=== PATIENT | male | born 1995 | race Caucasian/White ===

== ENCOUNTER 2017-06-03 01:11 | Emergency (ER) | payer MEDICAID ==
[2017-06-03 01:16] VITALS: BP 144/58
--- NOTE | 2017-06-03 03:07 | ED ---
Sharath Sahu Rebecca, scribed for Isra Espino MD on 06/03/17 at 0151 . Upper Extremity Pain - HPI Summary HPI Summary: Corie costa 21 y/o M who presents to ED c/o L wrist pain. Yesterday at approximately midnight he fell while riding his skateboard after which he noticed slight pain. He applied a splint and proceeded to fall again today. After removing the splint today, he noticed significantly more pain and decreased ROM. Pain is currently moderate, ranked 7/10 and has been constant and worsening since onset. Sx aggravated by movement, alleviated by nothing. - History of Current Complaint Chief Complaint: EDExtremityUpper Stated Complaint: POSS LEFT BROKEN WRIST Time Seen by Provider: 06/03/17 01:44 Hx Obtained From: Patient Mechanism Of Injury: Fall From A Standing Position Onset/Duration: Started Days Ago - Yesterday, Still Present Timing: Constant Severity Initially: Mild Severity Currently: Moderate - 7/10 Pain Location: Wrist - L wrist Aggravating Factor(s): Movement Alleviating Factor(s): Nothing - Allergies/Home Medications Allergies/Adverse Reactions: Allergies Allergy/AdvReac Type Severity Reaction Status Date / Time No Known Allergies Allergy Verified 06/03/17 01:14 PMH/Surg Hx/FS Hx/Imm Hx Cardiovascular History: Denies: Other Cardiovascular Problems/Disorders Respiratory History: Reports: Hx Asthma - WITH RESP VIRUS Denies: Other Respiratory Problems/Disorders GI History: Denies: Other GI Disorders Musculoskeletal History: Reports: Hx Tendonitis - achillies tendon repair, Other Musculoskeletal History - achillies tendon repair Sensory History: Denies: Hx Contacts or Glasses, Hx Hearing Aid Opthamlomology History: Denies: Hx Contacts or Glasses Neurological History: Denies: Other Neuro Impairments/Disorders Psychiatric History: Reports: Hx Anxiety - NO MEDS NOW, Hx Depression - NO MEDS NOW Denies: Hx of Violent Episodes Against Others - Surgical History Surgery Procedure, Year, and Place: 1996, SHERYL EAR TUBES, [facility] [place]. LACERATION RIGHT LEG/ ACHILLES, [facility] [place], 2006. 2005, CIRCUMCISION, [facility] [place]. endoscopy 01/11/2014 Hx Anesthesia Reactions: No Infectious Disease History: No Infectious Disease History: Denies: Traveled Outside the [place] in Last 30 Days - Family History Known Family History: Negative: Cardiac Disease, Hypertension, Diabetes - Social History Alcohol Use: None Substance Use Type: Reports: Marijuana Substance Use Comment - Amount & Last Used: 2 days prior to admission Smoking Status (MU): Unknown if Ever Smoked Type: Cigarettes Amount Used/How Often: 2 days ago Length of Time of Smoking/Using Tobacco: of umesh Have You Smoked in the Last Year: Yes Review of Systems Negative: Fever Positive: Arthralgia - L wrist pain with decreased ROM All Other Systems Reviewed And Are Negative: Yes Physical Exam - Summary Physical Exam Summary: General: well-appearing, no pain distress Skin: warm, color reflects adequate perfusion, dry Head: normal Eyes: EOMI, ALEXIS ENT: normal Neck: supple, nontender Respiratory: CTA, breath sounds present Cardiovascular: RRR Musculoskeletal: tender over the distal ulna, not tender in the snuff box, can move all fingers and move his L wrist but with pain, good capillary refill Neurological: normal, sensory/motor intact, A&O x3 Psychological: affect/mood appropriate Triage Information Reviewed: Yes Vital Signs On Initial Exam: Initial Vitals Temp Pulse Resp BP Pulse Ox 97.6 F 85 16 144/58 100 06/03/17 01:15 06/03/17 01:15 06/03/17 01:15 06/03/17 01:15 06/03/17 01:15 Vital Signs Reviewed: Yes Procedures - Splinting Location: L thumb Hand-Made Type: orthoglass Splint: thumb spica Pre-Proc Neuro Vasc Exam: normal Post-Proc Neuro Vasc Exam: normal Diagnostics - Vital Signs Vital Signs Temp Pulse Resp BP Pulse Ox 06/03/17 01:15 97.6 F 85 16 144/58 100 - Laboratory Lab Statement: Any lab studies that have been ordered have been reviewed, and results considered in the medical decision making process. - Radiology Wrist XR Xray Interpretation: Positive (See Comments) - Scaphoid fracture Radiology Interpretation Completed By: ED Physician Re-Evaluation - Re-Evaluation First Eval Re-Evaluation Time: 02:37 Comment: Discussed XR results and splinted the L thumb. Course/Dx - Course Course Of Treatment: NO CRITICAL CARE TIME. LEFT THUMB SPICA SPLINT PLACED. PATIENT WAS UNSURE TO WHICH ORTHOPIC GROUP HE WILL GO TO THEREFORE, BOTH GROUP ORTHOPEDISTS [employer] WERE GIVEN AT DISCHARGE. I STRONGLY STRESSED THE NEED FOR CLOSE FOLLOW UP TO AVOID LOSS OF FUNCTION OF THE WRIST. - Diagnoses Provider Diagnoses: Fracture of scaphoid of left wrist Discharge - Discharge Plan Condition: Stable Disposition: HOME Patient Education Materials: Scaphoid Fracture (ED) Referrals: Jim Boles MD [Primary Care Provider] - Toi Salgado MD [Medical Doctor] - Lorena Hernandez MD [Medical Doctor] - Additional Instructions: FOLLOW UP WITH YOUR DOCTOR AND ORTHOPEDICS. THE SCAPHOID BONE, WHEN BROKEN, MAY REQUIRE SURGERY TO ENSURE PROPER HEALING. IF THE BONE DOES NOT HEAL CORRECTLY, YOU MAY LOOSE FULL FUNCTION OF YOUR WRIST. CALL ORTHOPEDICS TODAY FOR FOLLOW UP. RETURN TO THE EMERGENCY DEPARTMENT FOR ANY WORSENING OF YOUR CONDITION OR QUESTIONS OR CONCERNS. The documentation as recorded by the Sharath clemons Rebecca accurately reflects the service I personally performed and the decisions made by me, Isra Espino MD.
--- NOTE | 2017-06-03 07:51 | RAD ---
INDICATION: Left wrist injury. TECHNIQUE: 3 views of the left wrist were obtained. FINDINGS: The bones are in normal alignment. There is soft tissue swelling present along the dorsal aspect of the carpal bones. There is a transverse nondisplaced fracture through the midportion of the scaphoid bone. No other fractures are seen. Joint spaces appear maintained. The results of this examination were discussed with the emergency department charge nurse Henry. IMPRESSION: TRANSVERSE NONDISPLACED FRACTURE OF THE SCAPHOID BONE.
== END 2017-06-03 03:22 | disposition home or self-care (01) ==
LOC: ED 01:11
DX: S62.002A Unspecified fracture of navicular [scaphoid] bone of left wrist, initial encounter for closed fracture (principal); W19.XXXA Unspecified fall, initial encounter; Y93.51 Activity, roller skating (inline) and skateboarding; Y92.9 Unspecified place or not applicable; Y99.9 Unspecified external cause status
CPT/HCPCS: 99282

== ENCOUNTER 2017-06-07 01:55 | Emergency (ER) | payer MEDICAID ==
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
[2017-06-07 03:47] VITALS: BP 131/65
--- NOTE | 2017-06-07 07:55 | RAD ---
INDICATION: Left wrist injury. COMPARISON: Comparison is made with a prior x-ray study of the left wrist from June 03, 2017. TECHNIQUE: 3 views of the left wrist were obtained. FINDINGS: The wrist is in a fiberglass splint. Again note is made of a transverse minimally displaced fracture through the midportion of the scaphoid bone. There appears to be no significant change from the prior study. IMPRESSION: TRANSVERSE MINIMALLY DISPLACED FRACTURE THROUGH THE MIDPORTION OF THE SCAPHOID BONE, UNCHANGED.
== END 2017-06-07 04:04 | disposition home or self-care (01) ==
LOC: ED 01:55
DX: S62.002A Unspecified fracture of navicular [scaphoid] bone of left wrist, initial encounter for closed fracture (principal); Y35.811A Legal intervention involving manhandling, law enforcement official injured, initial encounter; Y93.9 Activity, unspecified; Y92.89 Other specified places as the place of occurrence of the external cause; F17.210 Nicotine dependence, cigarettes, uncomplicated
CPT/HCPCS: 29125; 99282

== ENCOUNTER → 2017-07-24 21:08 | Emergency (ER) | payer MEDICAID | END | disposition left against medical advice (07) | LOC: ED 21:08 | DX: R51 Headache (principal); Z53.21 Procedure and treatment not carried out due to patient leaving prior to being seen by health care provider ==

== ENCOUNTER 2018-01-20 08:00 | Emergency (ER) | payer SELFPAY ==
[2018-01-20] MEDS ORDERED: NS 0.9% 1000 ML* 1,000 ML IV ONE ×2 (08:28→10:46)
[2018-01-20] MEDS ORDERED: Ondansetron INJ* 2 MG/ML VIAL IV ONE ×2 (08:30→10:46)
[2018-01-20 09:03] LABS: ABS Basophils 0.1 10^3/ul (0-0.2); ABS Eosinophils 0.1 10^3/ul (0-0.6); ABS Lymphocytes 1.2 10^3/ul (1.0-4.8); ABS Monocytes 0.3 10^3/ul (0-0.8); ABS Neutrophils 12.1 10^3/ul (1.5-7.7); ABS Nucleated RBC 0 10^3/ul; Eosinophil % 0.4 % (0-6); Hematocrit 45 % (42-52); Hemoglobin 14.7 g/dl (14.0-18.0); Lymphocyte % 8.8 % (25-47); Mean Corpuscular HGB Conc 33 g/dl (31-36); Mean Corpuscular Hemoglobin 25 pg (27-31); Mean Corpuscular Volume 76 fL (80-94); Mean Platelet Volume 8 um3 (7.4-10.4); Nucleated Red Blood Cells % 0.1; Platelet Count 277 10^3/ul (150-450); Red Blood Count 5.82 10^6/ul (4.0-5.4); Red Cell Distribution Width 14 % (10.5-15); White Blood Count 13.8 10^3/ul (3.5-10.8)
[2018-01-20 09:46] LABS: Urine Appearance Clear; Urine Blood Negative (Negative); Urine Color Yellow; Urine Ketones Negative (Negative); Urine Protein 2+(100 mg/dL) (Negative); Urine Specific Gravity 1.017 (1.010-1.030); Urine Urobilinogen Negative (Negative)
[2018-01-20 10:07] LABS: EGFR Non-African American 98.7 (>60)
[2018-01-20 11:11] VITALS: BP 143/70
--- NOTE | 2018-01-21 08:16 | ED ---
Camilo Sahu Angela, scribed for Juan Jose Malik MD on 01/20/18 at 0835 . GI/ HPI - HPI Summary HPI Summary: This pt is a 22 y/o male presenting to [facility] c/o nausea and vomiting since 02: 00. Pt reports he is unable to keep any food or drink down. He additionally states he has some abdominal pain, described as tightness. He notes he drank alcohol last night but does not know the amount that he ingested. Denies any PMHx. - History of Current Complaint Chief Complaint: EDNauseaVomitDiarrh Time Seen by Provider: 01/20/18 08:16 Stated Complaint: VOMITING Hx Obtained From: Patient Onset/Duration: Started Hours Ago, Still Present Timing: Constant, Lasting Hours Current Severity: Moderate Pain Intensity: 8 Location of Pain: Diffuse Associated Signs and Symptoms: Positive: Nausea, Vomiting Aggravating Factor(s): Nothing Alleviating Factor(s): Nothing - Allergy/Home Medications Allergies/Adverse Reactions: Allergies Allergy/AdvReac Type Severity Reaction Status Date / Time No Known Allergies Allergy Verified 01/20/18 08:09 PMH/Surg Hx/FS Hx/Imm Hx Endocrine/Hematology History: Denies: Hx Diabetes Cardiovascular History: Denies: Hx Hypertension, Other Cardiovascular Problems/Disorders Respiratory History: Reports: Hx Asthma - WITH RESP VIRUS Denies: Other Respiratory Problems/Disorders GI History: Denies: Other GI Disorders Musculoskeletal History: Reports: Hx Tendonitis - achillies tendon repair, Other Musculoskeletal History - achillies tendon repair Sensory History: Denies: Hx Contacts or Glasses, Hx Hearing Aid Opthamlomology History: Denies: Hx Contacts or Glasses Neurological History: Denies: Other Neuro Impairments/Disorders Psychiatric History: Reports: Hx Anxiety - NO MEDS NOW, Hx Depression - NO MEDS NOW Denies: Hx of Violent Episodes Against Others - Surgical History Surgery Procedure, Year, and Place: 1996, SHERYL EAR TUBES, [facility] [place] LACERATION RIGHT LEG/ [place]ES, [facility] [place], 2006. 2005, CIRCUMCISION, [facility] [place]. endoscopy 01/11/2014 Hx Anesthesia Reactions: No Infectious Disease History: No Infectious Disease History: Denies: Traveled Outside the [place] in Last 30 Days - Family History Known Family History: Negative: Cardiac Disease, Hypertension, Diabetes - Social History Alcohol Use: Occasionally Substance Use Type: Reports: Marijuana Smoking Status (MU): Light Every Day Tobacco Smoker Type: Cigarettes Amount Used/How Often: 2 days ago Length of Time of Smoking/Using Tobacco: of marajuanna Have You Smoked in the Last Year: Yes Review of Systems Negative: Fever, Chills Eyes: Negative ENT: Negative Cardiovascular: Negative Positive: Abdominal Pain, Vomiting, Nausea Skin: Negative Neurological: Negative All Other Systems Reviewed And Are Negative: Yes Physical Exam - Summary Physical Exam Summary: VITAL SIGNS: Reviewed. GENERAL: Patient is a well-developed and nourished male who is lying comfortable in the stretcher. Patient is not in any acute respiratory distress. HEAD AND FACE: No signs of trauma. No ecchymosis, hematomas or skull depressions. No sinus tenderness. EYES: PERRLA, EOMI x 2, No injected conjunctiva, no nystagmus. EARS: Hearing grossly intact. Ear canals and tympanic membranes are within normal limits. MOUTH: Oropharynx within normal limits. NECK: Supple, trachea is midline, no adenopathy, no JVD, no carotid bruit, no c- spine tenderness, neck with full ROM. CHEST: Symmetric, no tenderness at palpation LUNGS: Clear to auscultation bilaterally. No wheezing or crackles. CVS: Regular rate and rhythm, S1 and S2 present, no murmurs or gallops appreciated. ABDOMEN: Soft. Epigastric tenderness. No signs of distention. No rebound no guarding, and no masses palpated. Bowel sounds are normal. EXTREMITIES: FROM in all major joints, no edema, no cyanosis or clubbing. NEURO: Alert and oriented x 3. No acute neurological deficits. Speech is normal and follows commands. SKIN: Dry and warm Triage Information Reviewed: Yes Vital Signs On Initial Exam: Initial Vitals Temp Pulse Resp BP Pulse Ox 97.8 F 71 17 133/65 100 01/20/18 08:05 01/20/18 08:05 01/20/18 08:05 01/20/18 08:05 01/20/18 08:05 Vital Signs Reviewed: Yes Diagnostics - Vital Signs Vital Signs Temp Pulse Resp BP Pulse Ox 01/20/18 08:05 97.8 F 71 17 133/65 100 - Laboratory Result Diagrams: 01/20/18 08:55 01/20/18 08:55 Lab Statement: Any lab studies that have been ordered have been reviewed, and results considered in the medical decision making process. [id number] Course/Dx - Course Assessment/Plan: This pt is a 22 y/o male presenting to [facility] c/o nausea and vomiting since 02:00. Pt reports he is unable to keep any food or drink down. He additionally states he has some abdominal pain, described as tightness. He notes he drank alcohol last night but does not know the amount that he ingested. Denies any PMHx. Test results show WBC of 13.8. Urinalysis is negative for UTI. In the ED course the pt was given IV fluids, Zofran for nausea and vomiting, and his symptoms improved. Pt is able to tolerate PO and has no other complaints. Pt will be discharged to home with follow up from PCP. Pt is hemodynamically stable, alert and oriented x3. - Diagnoses Provider Diagnoses: Nausea and vomiting Discharge - Discharge Plan Condition: Stable Disposition: HOME Patient Education Materials: Acute Nausea and Vomiting (ED) Referrals: [facility] PHYSICIAN REFERRAL [Outside] - 3 Days Additional Instructions: Please follow up with your primary care provider. RETURN TO THE ED FOR ANY WORSENING SYMPTOMS. The documentation as recorded by the Camilo clemons Angela accurately reflects the service I personally performed and the decisions made by , Juan Jose Malik MD.
== END 2018-01-20 11:10 | disposition home or self-care (01) ==
LOC: ED 08:00
DX: R11.2 Nausea with vomiting, unspecified (principal); R10.9 Unspecified abdominal pain; F17.210 Nicotine dependence, cigarettes, uncomplicated
CPT/HCPCS: 36415; 80053; 81003; 81015; 83735; 85025; 86140; 96374; 96375; 99282; J2405

== ENCOUNTER 2018-07-16 09:29 | Emergency (ER) | payer MEDICAID ==
[2018-07-16 09:35] VITALS: BP 145/87
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
--- NOTE | 2018-07-16 10:30 | RAD ---
INDICATION: Right wrist injury. TECHNIQUE: 3 views of the right wrist were obtained. FINDINGS: There is medial soft tissue swelling. The bones are normal alignment. No fracture is seen. IMPRESSION: NO EVIDENCE FOR FRACTURE.
== END 2018-07-16 10:30 | disposition home or self-care (01) ==
LOC: ED 09:29
DX: S60.211A Contusion of right wrist, initial encounter (principal); M25.531 Pain in right wrist; F17.210 Nicotine dependence, cigarettes, uncomplicated; Y09 Assault by unspecified means; Y92.9 Unspecified place or not applicable
CPT/HCPCS: 99282

== ENCOUNTER 2018-10-31 18:35 | Emergency (ER) | payer OTHER ==
[2018-10-31] MEDS ORDERED: NS 0.9% 1000 ML* 2,000 ML IV ONE (19:22)
--- NOTE | 2018-10-31 19:22 | ED ---
Head Injury - HPI Summary HPI Summary: 23 year old M arriving by taxi to [facility] with a chief complaint of throbbing head pain s/p slipping while getting out of the shower and hitting his head on the corner of the shower several hours ago this afternoon. The patient rates the pain 7/10 in severity. Symptoms aggravated by nothing. Symptoms alleviated by nothing. Patient reports loss of consciousness. He woke up on the bathroom floor and was confused. He does not remember why he fell. Patient reports headache, dizziness, nausea, and neck pain immediately after falling. He notes feeling some chest pain and sore throat. Patient denies incontinence, shortness of breath, runny nose, abdominal pain, vomiting. Patient states that he was born in [place] but has previously been living in [place]. He plans to attend [employer] next month. At the moment, patient is staying at the [facility], a hotel in [place]. Patient usually stays with girlfriend but is in hotel tonight to give girlfriend alone time with her family. Pt states the fall and injury with LOC tonight occurred at the hotel, and he took a cab to get to the ED. Pt states he does not want to notify his girlfriend that he is in the ED. Pt states he has no family in the area, that his mother 2 years ago. Patient has hx concussions from falling from skateboarding. 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 Has no Fhx cardiac disease. Patient does not drink or smoke cigarettes. He smokes marijuana, last time being 2 hours ago prior to the syncopal event. Denies fam hx sudden or cardiac hx. Vital signs while in room: HR 79 bpm, BP 134/94 Home Medications Medication Instructions Recorded Confirmed Type NK [No Home Medications Reported] 10/31/18 10/31/18 History - History Of Current Complaint Chief Complaint: EDHeadInjury Stated Complaint: FALL/POSS HEAD INJURY Time Seen by Provider: 10/31/18 19:03 Hx Obtained From: Patient Mechanism Of Injury: Other - slipping while getting out of the shower and hitting his head on the corner of the shower Onset/Duration: Started Days Ago - several hours ago this afternoon, Still Present Onset of Pain: Immediate Severity Currently: Moderate Severity Initially: Moderate Pain Intensity: 7 Pain Scale Used: 0-10 Numeric Location of Head Injury: Occipital Location: Discrete At: - posterior occiput Character: Throbbing Aggravating Factor(s): Other: - Nothing Alleviating Factor(s): Other: - Nothing Associated Signs And Symptoms: Negative - incontinence, shortness of breath, runny nose, abdominal pain, vomiting, LOC Duration Unknown, Confusion, Memory Loss, Neck Pain, Nausea, Headache, Other: - loss of consciousness, confusion, does not remember why he fell; headache, dizziness, nausea, and neck pain; chest pain and sore throat - Allergies/Home Medications Allergies/Adverse Reactions: Allergies Allergy/AdvReac Type Severity Reaction Status Date / Time No Known Allergies Allergy Verified 10/31/18 18:51 Home Medications: Home Medications NK [No Home Medications Reported] 10/31/18 [History Confirmed 10/31/18] PMH/Surg Hx/FS Hx/Imm Hx Previously Healthy: No Endocrine/Hematology History: Denies: Hx Diabetes Cardiovascular History: Denies: Hx Hypertension, Other Cardiovascular Problems/Disorders Respiratory History: Reports: Hx Asthma - WITH RESP VIRUS Denies: Other Respiratory Problems/Disorders GI History: Denies: Other GI Disorders History: Reports: Other Problems/Disorders - circumcision age 10 1/2 due to partial phimosis and recurrent ballanitis,[facility] [place] Musculoskeletal History: Reports: Hx Tendonitis - achillies tendon repair Sensory History: Denies: Hx Contacts or Glasses, Hx Hearing Aid Opthamlomology History: Denies: Hx Contacts or Glasses Neurological History: Reports: Other Neuro Impairments/Disorders - multiple previous concussions Psychiatric History: Reports: Hx Anxiety - NO MEDS NOW, Hx Attention Deficit Hyperactivity Disorder, Hx Depression - NO MEDS NOW, Hx Post Traumatic Stress Disorder, Other Psychiatric Issues/Disorders - OCD - Surgical History Surgery Procedure, Year, and Place: 1996, SHERYL EAR TUBES, [facility] [place]. LACERATION RIGHT LEG/ ACHILLES, [facility] [place], 2006. 2005, CIRCUMCISION, [facility] [place], due to partial phimosis and recurrent ballanitis. endoscopy 01/11/2014. 10/31/18 pt states surgery for his ?pancreas when he was young, pt unsure of details. Hx Anesthesia Reactions: No Infectious Disease History: No Infectious Disease History: Denies: Traveled Outside the [place] in Last 30 Days - Family History Known Family History: Positive: Other - Mother has anxiety and depression; sister has anxiety Negative: Cardiac Disease, Hypertension, Diabetes - Social History Alcohol Use: None Hx Substance Use: Yes Substance Use Type: Reports: Marijuana Substance Use Comment - Amount & Last Used: daily Hx Tobacco Use: No Smoking Status (MU): Never Smoked Tobacco Amount Used/How Often: 2 days ago Length of Time of Smoking/[facility] Have You Smoked in the Last Year: Yes Review of Systems Constitutional: Negative Eyes: Negative ENT: Negative - runny nose Positive: Sore Throat Positive: Chest Pain Negative: Shortness Of Breath Positive: Nausea. Negative: Abdominal Pain, Vomiting Negative: incontinence Positive: Other - throbbing head pain, neck pain Skin: Negative Neurological: Other - loss of conciousness, confusion, does not remember why he fell, dizziness Positive: Headache Psychological: Normal All Other Systems Reviewed And Are Negative: Yes Physical Exam - Summary Physical Exam Summary: Appearance: Well-appearing, moderate pain distress, well-nourished Skin: Patient has multiple tattoos Head: Patient reports pain on occiptal scalp. There is no cephalohematoma Eyes: Conjunctiva clear, PERRL EOMI ENT: Normal inspection Neck: Supple, no nodes, no JVD, no spinal tenderness, but c/o posterior neck pain Respiratory: Lungs clear, normal breath sounds, no respiratory distress Cardio: RRR, No murmur, pulses normal, brisk capillary refill; Ribs nontender Abdomen: Soft, nontender Bowel sounds: Present Musculoskeletal: Strength Intact/ROM intact, no calf tenderness, no edema. Psychological: Normal Neuro: Alert, muscle tone normal, no focal deficit GCS: 15 Triage Information Reviewed: Yes Vital Signs On Initial Exam: Initial Vitals Temp Pulse Resp BP Pulse Ox 97.8 F 77 19 134/94 100 10/31/18 18:48 10/31/18 18:48 10/31/18 18:48 10/31/18 18:48 10/31/18 18:48 Vital Signs Reviewed: Yes - [place] Coma Scale Best Eye Response: 4 - Spontaneous Best Motor Response: 6 - Obeys Commands Best Verbal Response: 5 - Oriented Coma Scale Total: 15 Diagnostics - Vital Signs Vital Signs Temp Pulse Resp BP Pulse Ox 10/31/18 18:48 97.8 F 77 19 134/94 100 - Laboratory Result Diagrams: 10/31/18 19:35 10/31/18 19:35 Lab Statement: Any lab studies that have been ordered have been reviewed, and results considered in the medical decision making process. - Radiology Cervical spine Radiology Interpretation Completed By: Radiologist Summary of Radiographic Findings: No cervical spine traumatic abnormalities. ED physician has reviewed this report. - CT Brain CT Interpretation Completed By: Radiologist Summary of CT Findings: Normal noncontrast head CT. ED physician has reviewed this report. - EKG 1933 Cardiac Rate: NL - 70 BPM EKG Rhythm: Sinus Rhythm ST Segment: Non-Specific Ectopy: None EKG Comparison: Other - No prior to compare Summary of EKG Findings: NSR at 70 BPM. Normal AVIVCT. Normal QTc. Normal axis. No acute changes. Re-Evaluation - Re-Evaluation First Eval Re-Evaluation Time: 20:58 Change: Improved Comment: Patient still has a mild headache so he will be given 650 mg Tylenol. Denies chest pain. Retentive of paula jeferson. He is unable to provide girlfriend' s number because his phone is not charged. Patient is awake and alert. States he will return to the [facility] tonight. Head Injury Course/Dx Course Of Treatment: Pt with episode of syncope and head injury tonight presents with LARIOS, dizziness, nausea, confusion, loss of memory for the event. Awoke on the floor. Had smoked marijuana 2 hrs prior. Patient medications were reviewed. Patient does not have known allergies. Toxicology positive for cannabinoid. Labs unremarkable. CT Brain and CT Cervical spine showed no abnormalities per radiologist. In ED course, patient was declined IV fluids and drank paula jeferson. Patient will be discharged. He was given instructions to follow up with [facility] and to return to ED for new or worsening symptoms. Patient is agreeable to discharge. - Diagnoses Differential Diagnosis/HQI/PQRI: Cerebral Contusion, Cervical Sprain, Concussion With LOC, Intracranial Bleed, Laceration, Skull Fracture Provider Diagnoses: Syncope, Concussion Discharge - Sign-Out/Discharge Documenting (check all that apply): Patient Departure - Discharge - Discharge Plan Condition: Stable Disposition: HOME Patient Education Materials: Syncope (ED), Concussion (ED) Referrals: [facility] [Outside] - 2 Days Additional Instructions: The CTs of your brain and cervical spine were normal. Your EKG and blood work were also within normal limits. You have sustained a concussion again, and you should not resume any physical activity/sports until you are seen by another physician. You need to get established with a primary care provider. You may be seen in the [facility] until you can get established. Return to the ER if you have any new or worsening symptoms. - Billing Disposition and Condition Condition: STABLE Disposition: Home - Attestation Statements Document Initiated by Esdras: Yes Documenting Scribe: Yana Spencer Provider For Whom Esdras is Documenting (Include Credential): Leticia Knapp MD Scribe Attestation: Yana Sahu, scribed for Leticia Knapp MD on 11/01/18 at 0049. Scribe Documentation Reviewed: Yes Provider Attestation: The documentation as recorded by the Yana clemons accurately reflects the service I personally performed and the decisions made by me, Leticia Knapp MD Status of Scribe Document: Viewed
[2018-10-31 19:44] LABS: ABS Basophils 0.1 10^3/ul (0-0.2); ABS Eosinophils 0.3 10^3/ul (0-0.6); ABS Lymphocytes 2.5 10^3/ul (1.0-4.8); ABS Monocytes 0.4 10^3/ul (0-0.8); ABS Neutrophils 4.6 10^3/ul (1.5-7.7); ABS Nucleated RBC 0 10^3/ul; Hematocrit 46 % (42-52); Hemoglobin 15.5 g/dl (14.0-18.0); Lymphocyte % 31.6 %; Mean Corpuscular HGB Conc 34 g/dl (31-36); Mean Corpuscular Hemoglobin 26 pg (27-31); Mean Corpuscular Volume 77 fL (80-94); Mean Platelet Volume 7.7 fL (7.4-10.4); Nucleated Red Blood Cells % 0.1; Platelet Count 222 10^3/ul (150-450); Red Cell Distribution Width 14 % (10.5-15); White Blood Count 7.9 10^3/ul (3.5-10.8)
[2018-10-31 19:48] LABS: INR 1.06 (0.77-1.02)
[2018-10-31 19:59] LABS: EGFR Non-African American 83.6 (>60)
[2018-10-31 20:17] LABS: Urine Appearance Turbid; Urine Blood Negative (Negative); Urine Color Yellow; Urine Ketones Negative (Negative); Urine Protein Negative (Negative); Urine Specific Gravity 1.019 (1.010-1.030); Urine Urobilinogen Negative (Negative)
[2018-10-31] MEDS ORDERED: Acetaminophen TAB* 325 MG PO ONE (21:04)
[2018-10-31] MEDS ORDERED: Acetaminophen TAB* 325 MG ONE (21:05)
[2018-10-31 21:15] VITALS: BP 142/77
== END 2018-10-31 21:15 | disposition home or self-care (01) ==
LOC: ED 18:35
DX: S06.0X9A Concussion with loss of consciousness of unspecified duration, initial encounter (principal); J02.9 Acute pharyngitis, unspecified; R07.9 Chest pain, unspecified; R06.02 Shortness of breath; R11.0 Nausea; R51 Headache; R55 Syncope and collapse; W18.2XXA Fall in (into) shower or empty bathtub, initial encounter; Y92.9 Unspecified place or not applicable
CPT/HCPCS: 36415; 70450; 72125; 80053; 80307; 80320; 81003; 82150; 83605; 83690; 85025; 85610; 93005; 99283; A9270-GY; G0480

== ENCOUNTER 2019-02-28 18:30 | Emergency (ER) | payer BC, MEDICAID ==
[2019-02-28 18:37] VITALS: BP 143/89
== END 2019-02-28 21:36 | disposition left against medical advice (07) ==
LOC: ED 18:30
DX: K08.89 Other specified disorders of teeth and supporting structures (principal); Z53.21 Procedure and treatment not carried out due to patient leaving prior to being seen by health care provider

== ENCOUNTER 2019-03-01 00:55 | Emergency (ER) | payer BC, MEDICAID ==
[2019-03-01 01:04] VITALS: BP 196/99
[2019-03-01] MEDS ORDERED: Penicillin VK TAB* 250 MG PO ONE (01:44)
--- NOTE | 2019-03-01 01:49 | ED ---
Throat Pain/Nasal Congestion - HPI Summary HPI Summary: 23 year male presents with dental fracture for the past week. He states his pain has been increasing. He states has been some drainage. He denies any fevers. No swelling. No sore throat. No nausea and no vomiting. No chest pressures or shortness of breath. He has swelling around his eyes. States that it is sensitive temperature. - History of Current Complaint Chief Complaint: EDDentalPain Time Seen by Provider: 03/01/19 01:44 - Allergies/Home Medications Allergies/Adverse Reactions: Allergies Allergy/AdvReac Type Severity Reaction Status Date / Time No Known Allergies Allergy Verified 10/31/18 18:51 PMH/Surg Hx/FS Hx/Imm Hx Endocrine/Hematology History: Denies: Hx Diabetes Cardiovascular History: Denies: Hx Hypertension, Other Cardiovascular Problems/Disorders Respiratory History: Reports: Hx Asthma - WITH RESP VIRUS Denies: Other Respiratory Problems/Disorders GI History: Denies: Other GI Disorders History: Reports: Other Problems/Disorders - circumcision age 8 1/2 due to partial phimosis and recurrent ballanitis,[facility] [place] Musculoskeletal History: Reports: Hx Tendonitis - achillies tendon repair, Other Musculoskeletal History - achillies tendon repair Sensory History: Denies: Hx Contacts or Glasses, Hx Hearing Aid Opthamlomology History: Denies: Hx Contacts or Glasses Neurological History: Reports: Other Neuro Impairments/Disorders - multiple previous concussions Psychiatric History: Reports: Hx Anxiety - NO MEDS NOW, Hx Attention Deficit Hyperactivity Disorder, Hx Depression - NO MEDS NOW, Hx Post Traumatic Stress Disorder, Other Psychiatric Issues/Disorders - OCD Denies: Hx of Violent Episodes Against Others - Surgical History Surgery Procedure, Year, and Place: 1996, SHERYL EAR TUBES, [facility] [place]. LACERATION RIGHT LEG/ ACHILLES, [facility] [place], 2006. 2005, CIRCUMCISION, [facility] [place], due to partial phimosis and recurrent ballanitis. endoscopy 01/11/2014. 10/31/18 pt states surgery for his ?pancreas when he was young, pt unsure of details. Hx Anesthesia Reactions: No Infectious Disease History: No Infectious Disease History: Denies: Traveled Outside the [place] in Last 30 Days - Family History Known Family History: Positive: Other - Mother has anxiety and depression; sister has anxiety Negative: Cardiac Disease, Hypertension, Diabetes - Social History Alcohol Use: None Hx Substance Use: Yes Substance Use Type: Reports: Marijuana Substance Use Comment - Amount & Last Used: daily Hx Tobacco Use: No Smoking Status (MU): Never Smoked Tobacco Type: Cigarettes Amount Used/How Often: 2 days ago Length of Time of Smoking/Using Tobacco: of [place] Have You Smoked in the Last Year: Yes Review of Systems Negative: Fever Positive: Dental Pain Negative: Chest Pain Negative: Shortness Of Breath All Other Systems Reviewed And Are Negative: Yes Physical Exam Triage Information Reviewed: Yes Vital Signs On Initial Exam: Initial Vitals Temp Pulse Resp BP Pulse Ox 99.2 F 79 20 196/99 100 03/01/19 00:57 03/01/19 00:57 03/01/19 00:57 03/01/19 00:57 03/01/19 00:57 Vital Signs Reviewed: Yes Appearance: Positive: Well-Appearing Skin: Positive: Warm, Dry Head/Face: Positive: Normal Head/Face Inspection Eyes: Positive: Normal, Conjunctiva Clear ENT: Positive: Pharynx normal Dental: Positive: Dental Fracture @ - 4 Respiratory/Lung Sounds: Positive: Clear to Auscultation, Breath Sounds Present Cardiovascular: Positive: Normal, RRR Musculoskeletal: Positive: Normal Neurological: Positive: Normal Psychiatric: Positive: Normal Diagnostics - Vital Signs Vital Signs Temp Pulse Resp BP Pulse Ox 03/01/19 00:57 99.2 F 79 20 196/99 100 - Laboratory Lab Statement: Any lab studies that have been ordered have been reviewed, and results considered in the medical decision making process. EENT Course/Dx - Course Course Of Treatment: 23 year male presents with dental fracture for the past week. He states his pain has been increasing. He states has been some drainage. He denies any fevers. No swelling. No sore throat. No nausea and no vomiting. No chest pressures or shortness of breath. He has swelling around his eyes. States that it is sensitive temperature. On exam has erythema noted to tooth 4. Has been using ibuprofen for the pain. No abscess noted. Will treat with penicillin. Told to follow dentist. Patient understands and agrees the plan. - Differential Diagnoses Differential Diagnoses: Dental Abscess, Dental Caries, Fractured Tooth - Diagnoses Provider Diagnoses: Dental infection Discharge - Sign-Out/Discharge Documenting (check all that apply): Patient Departure Patient Received Moderate/Deep Sedation with Procedure: No - Discharge Plan Condition: Good Disposition: HOME Prescriptions: Penicillin VK TAB* [Penicillin VK 250 mg Tab*] 500 mg PO QID #27 tab Patient Education Materials: Toothache (ED) Referrals: [facility]YSICIAN REFERRAL [Outside] Additional Instructions: Take antibiotics: 4 times a day for 7 days, first dose given in ED Use ibuprofen or tyenlol every 6 hours Avoid hard, crunchy food until seen by dentist Follow up with dentist as soon as possible Return to ED if develop fever, shortness of breath, pain with eye movement or swelling around eye - Billing Disposition and Condition Condition: GOOD Disposition: Home Images - Images Dental: 1 - fractured
== END 2019-03-01 02:00 | disposition home or self-care (01) ==
LOC: ED 00:55
DX: K04.7 Periapical abscess without sinus (principal)
CPT/HCPCS: 99282; A9270-GY

== ENCOUNTER 2019-06-07 14:43 | Emergency (ER) | payer BC, MEDICAID ==
[2019-06-07] MEDS ORDERED: Ondansetron ODT TAB* 4 MG SL ONE (15:05)
[2019-06-07] MEDS ORDERED: HYDROcodone/ACETAMIN 5-325 MG* 1 TAB PO ONE (15:06)
[2019-06-07 15:28] LABS: ABS Eosinophils 0.1 10^3/ul (0-0.6); ABS Lymphocytes 1.2 10^3/ul (1.0-4.8); ABS Monocytes 0.7 10^3/ul (0-0.8); ABS Neutrophils 14.8 10^3/ul (1.5-7.7); Eosinophil % 0.8 %; Hematocrit 46 % (42-52); Hemoglobin 15.5 g/dL (14.0-18.0); Mean Corpuscular HGB Conc 33 g/dL (31-36); Mean Corpuscular Hemoglobin 25 pg (27-31); Mean Corpuscular Volume 76 fL (80-94); Mean Platelet Volume 7.9 fL (7.4-10.4); Nucleated Red Blood Cells % 0.1; Platelet Count 236 10^3/uL (150-450); Red Cell Distribution Width 14 % (10-15); White Blood Count 16.8 10^3/uL (3.5-10.8)
[2019-06-07 15:47] LABS: INR 1.12 (0.82-1.09)
[2019-06-07 15:53] LABS: ALT 11 U/L (7-52); AST 22 U/L (13-39); Albumin 5.1 g/dL (3.2-5.2); Albumin/Globulin Ratio 1.9 (1-3); Alkaline Phosphatase 84 U/L (34-104); Anion Gap 10 mmol/L (2-11); BUN/Creatinine Ratio 13.9 (8-20); Blood Urea Nitrogen 15 mg/dL (6-24); C Reactive Protein < 1.00 mg/L (<8.01); CO2 Carbon Dioxide 25 mmol/L (22-32); Calcium 10.1 mg/dL (8.6-10.3); Chloride 102 mmol/L (101-111); EGFR African American 104.4 (>60); EGFR Non-African American 86.3 (>60); Globulin 2.7 g/dL (2-4); Glucose 81 mg/dL (70-100); Potassium 3.6 mmol/L (3.5-5.0); Sodium 137 mmol/L (135-145); Total Protein 7.8 g/dL (6.4-8.9)
[2019-06-07 18:11] VITALS: BP 132/74
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
--- NOTE | 2019-06-08 10:16 | PN ---
Progress Note - Progress Note Date of Service: 06/08/19 Note: Called Dr. Blank's office at 9:[address] Mckinney no longer accepts patients with mandibular fractures Discussed patient's case with [facility] maxillofacial and oral surgery at 10 AM on 06/08/19 Office stated they would be able to accept the patient soon as patient has mandibular fracture Faxed information to [facility]. Discussed with Aisha, patients mother who will pharmacy picking tech disk of CT maxillofacial and bring to appt Any complications, it was discussed with Aisha to call me, Jessie Lakhani, back in the ED
== END 2019-06-07 18:06 | disposition home or self-care (01) ==
LOC: ED 14:43
DX: S02.651A Fracture of angle of right mandible, initial encounter for closed fracture (principal); Y09 Assault by unspecified means; Y92.9 Unspecified place or not applicable; F17.210 Nicotine dependence, cigarettes, uncomplicated
CPT/HCPCS: 36415; 70450; 70486; 71046; 80053; 85025; 85610; 86140; 99284; A9270-GY

== ENCOUNTER 2021-09-02 18:18 | Inpatient (IN) ==
[2021-09-02 20:04] LABS: Rapid COVID-19 Molecular Undetected (Undetected)
[2021-09-02 22:26] LABS: Urine Benzodiazepine Screen None Detected (None Detect); Urine Cannabinoids Screen Presumptive Positive (None Detect); Urine Opiates Screen None Detected (None Detect)
[2021-09-03 05:19] LABS: ABS Lymphocytes 1.6 10^3/ul (1.0-4.8); ABS Monocytes 0.6 10^3/ul (0-0.8); ABS Neutrophils 9.1 10^3/ul (1.5-7.7); Eosinophil % 0.2 %; Hematocrit 43 % (42-52); Hemoglobin 14.1 g/dL (14.0-18.0); Mean Corpuscular HGB Conc 33 g/dL (31-36); Mean Corpuscular Hemoglobin 25 pg (27-31); Mean Corpuscular Volume 78 fL (80-94); Mean Platelet Volume 7.6 fL (7.4-10.4); Platelet Count 221 10^3/uL (150-450); Red Blood Count 5.55 10^6 /uL (4.18-5.48); Red Cell Distribution Width 16 % (10-15); White Blood Count 11.3 10^3/uL (3.5-10.8)
[2021-09-03 05:34] LABS: Albumin 4.5 g/dL (3.2-5.2); Calcium 9.2 mg/dL (8.6-10.3); Globulin 2.2 g/dL (2-4); Magnesium 2.3 mg/dL (1.9-2.7); Potassium 3.6 mmol/L (3.5-5.0); Total Bilirubin 0.7 mg/dL (0.2-1.0); Total Protein 6.7 g/dL (6.4-8.9)
[2021-09-03] MEDS: Multivitamins/Minerals TAB PO SCH ×2 (07:46→11:08)
[2021-09-04 06:21] LABS: ABS Basophils 0.1 10^3/ul (0-0.2); ABS Eosinophils 0.2 10^3/ul (0-0.6); ABS Monocytes 0.5 10^3/ul (0-0.8); ABS Neutrophils 3.7 10^3/ul (1.5-7.7); Eosinophil % 3.7 %; Hematocrit 43 % (42-52); Hemoglobin 14.1 g/dL (14.0-18.0); Lymphocyte % 30.2 %; Mean Corpuscular HGB Conc 33 g/dL (31-36); Mean Corpuscular Hemoglobin 26 pg (27-31); Mean Corpuscular Volume 78 fL (80-94); Mean Platelet Volume 7.9 fL (7.4-10.4); Nucleated Red Blood Cells % 0.1; Platelet Count 201 10^3/uL (150-450); Red Blood Count 5.51 10^6 /uL (4.18-5.48); Red Cell Distribution Width 16 % (10-15); White Blood Count 6.5 10^3/uL (3.5-10.8)
[2021-09-04 06:44] LABS: Anion Gap 7 mmol/L (2-11); Blood Urea Nitrogen 10 mg/dL (6-24); CO2 Carbon Dioxide 27 mmol/L (22-32); Calcium 9.2 mg/dL (8.6-10.3); Chloride 105 mmol/L (101-111); Glucose 83 mg/dL (70-100); Potassium 3.4 mmol/L (3.5-5.0); Sodium 139 mmol/L (135-145)
[2021-09-04 06:49] LABS: % Iron Saturation 10 % (15-55); Iron 28 ug/dL (50-212); Total Iron Binding Capacity 276 mcg/dL (250-450); Transferrin 197 mg/dL (203-362); Unsaturated Iron Binding < 261 ug/dL
[2021-09-04 07:01] LABS: Ferritin 75.8 ng/mL (24-336)
[2021-09-04 08:52] VITALS: BP 107/63
[2021-09-04] MEDS: Multivitamins/Minerals TAB PO SCH (08:52)
== END 2021-09-04 10:35 | disposition home or self-care (01) | DRG 53 ==
LOC: ED 18:18 → MED 18:18 → SUATTDRO 09-03 09:28 → MED 09-03 09:30
PROVIDERS: ADMIT Internal Medicine; ATTEND Hospitalist

== ENCOUNTER 2022-09-03 17:34 | Inpatient (IN) ==
[2022-09-03] MEDS ORDERED: NS 0.9% 1000 ml BAG 2,000 ML IV ONE (17:44)
[2022-09-03 18:03] LABS: PCO2 Arterial 63 mmHg (35-45); PO2 Arterial 295 mmHg (80-100)
[2022-09-03 18:04] LABS: ABS Lymphocytes 0.8 10^3/ul (1.0-4.8); ABS Monocytes 0.7 10^3/ul (0-0.8); ABS Neutrophils 11.4 10^3/ul (1.5-7.7); Eosinophil % 0.1 %; Hematocrit 43 % (42-52); Lymphocyte % 6.5 %; Mean Corpuscular HGB Conc 31 g/dL (31-36); Mean Corpuscular Hemoglobin 25 pg (27-31); Mean Corpuscular Volume 82 fL (80-94); Mean Platelet Volume 8.2 fL (7.4-10.4); Platelet Count 278 10^3/uL (150-450); Red Blood Count 5.17 10^6 /uL (4.18-5.48); Red Cell Distribution Width 15 % (10-15); White Blood Count 12.9 10^3/uL (3.5-10.8)
[2022-09-03 18:44] LABS: Albumin 3.6 g/dL (3.2-5.2); Albumin/Globulin Ratio 1.9 (1-3); Globulin 1.9 g/dL (2-4); Magnesium 2.8 mg/dL (1.9-2.7); Total Bilirubin 0.2 mg/dL (0.2-1.0); Total Protein 5.5 g/dL (6.4-8.9); eGFR CKD-EPI 27.5 (>60)
[2022-09-03 18:53] LABS: Potassium 5.6 mmol/L (3.5-5.0)
[2022-09-03] MEDS ORDERED: Propofol 10 mg/ml 100 ML BTL 100 ML IV SCH (19:00)
[2022-09-03] MEDS ORDERED: Norepinephrine 16MCG/ML BAGD5W 4,000 MCG/250 ML BAG IV SCH ×2 (19:00→21:00)
[2022-09-03 19:38] LABS: Phosphorus 11.1 mg/dL (2.5-5.0)
[2022-09-03] MEDS ORDERED: Sodium Polystyrene ORAL.SUSP 15 GM/60 ML BTL PO ONE (19:44)
[2022-09-03] MEDS ORDERED: Lactated Ringers 1000 ml BAG 1,000 ML IV ONE (20:00)
[2022-09-03 21:02] LABS: PCO2 Arterial 39 mmHg (35-45); PO2 Arterial 349 mmHg (80-100)
[2022-09-03] MEDS ORDERED: Acetaminophen IV 1 GM/100ML 1,000 MG/100 ML BAG IV PRN (21:16)
[2022-09-03] MEDS: Heparin 5000 UNITS/ML 1 mL VIAL SUBCUT SCH (21:26)
[2022-09-03] MEDS: Pantoprazole VIAL 40 MG VIAL IV SCH (21:27)
[2022-09-03] MEDS: Chlorhexidine MOUTHWASH 0.12% 15 ML UDC SWISH SPIT SCH (21:27)
[2022-09-03] MEDS: Lactated Ringers 1000 ml BAG 1,000 ML IV SCH (21:49)
[2022-09-03] MEDS ORDERED: PHENYLEPHRINE DRIP IVPREMIX 50 MG/250 ML BAG IV SCH (22:00)
[2022-09-03 22:29] LABS: Urine Benzodiazepine Screen Presumptive Positive (None Detect); Urine Cannabinoids Screen Presumptive Positive (None Detect); Urine Opiates Screen None Detected (None Detect)
[2022-09-03 22:32] LABS: Urine Appearance Cloudy; Urine Bilirubin Negative (Negative); Urine Blood 2+ (Negative); Urine Color Yellow; Urine Glucose Negative (Negative); Urine Ketones Negative (Negative); Urine Nitrite Negative (Negative); Urine Protein 2+(100 mg/dL) (Negative); Urine Specific Gravity 1.009 (1.002-1.030); Urine Urobilinogen Negative (Negative)
[2022-09-03 22:36] LABS: Urine Bacteria Absent (Absent); Urine Red Blood Cell 2+(6-10/hpf) (Absent); Urine White Blood Cell 2+(11-20/hpf) (Absent)
[2022-09-03] MEDS: Midazolam 50 MG VIAL IV DRIP 50 ML IV SCH (22:37)
[2022-09-04 01:54] LABS: eGFR CKD-EPI 27.7 (>60)
[2022-09-04 01:57] LABS: Potassium 6.8 mmol/L (3.5-5.0)
[2022-09-04] MEDS ORDERED: Dextrose 50% Syringe 50 ml 25 GM/50 ML SYRINGE IV PUSH ONE (02:09)
[2022-09-04] MEDS ORDERED: Sodium Bicarbonate 8.4% SYR 50 ml SYRINGE IV ONE (02:10)
[2022-09-04] MEDS ORDERED: CALCIUM GLUCONATE 1GM/50ML NS 1 GM/50 ML BAG IV ONE ×2 (02:17→19:05)
[2022-09-04] MEDS: Chlorhexidine MOUTHWASH 0.12% 15 ML UDC SWISH SPIT SCH ×6 (03:02→20:18)
[2022-09-04 04:18] LABS: ABS Lymphocytes 0.8 10^3/ul (1.0-4.8); ABS Monocytes 1.3 10^3/ul (0-0.8); ABS Neutrophils 12.9 10^3/ul (1.5-7.7); Hematocrit 45 % (42-52); Hemoglobin 14.1 g/dL (14.0-18.0); Lymphocyte % 5.3 %; Mean Corpuscular HGB Conc 32 g/dL (31-36); Mean Corpuscular Hemoglobin 25 pg (27-31); Mean Corpuscular Volume 79 fL (80-94); Mean Platelet Volume 8.2 fL (7.4-10.4); Platelet Count 237 10^3/uL (150-450); Red Cell Distribution Width 15 % (10-15)
[2022-09-04] MEDS: Midazolam 50 MG VIAL IV DRIP 50 ML IV SCH ×2 (04:22→09:36)
[2022-09-04 04:31] LABS: INR 1.34 (0.89-1.11)
[2022-09-04 04:43] LABS: Calcium 8.6 mg/dL (8.6-10.3); Phosphorus 3.3 mg/dL (2.5-5.0)
[2022-09-04 04:44] LABS: Potassium 5.2 mmol/L (3.5-5.0)
[2022-09-04] MEDS: Lactated Ringers 1000 ml BAG 1,000 ML IV SCH (06:04)
[2022-09-04] MEDS ORDERED: Furosemide 20 mg/2 ml IV VIAL IV SLOW PU ONE (08:04)
[2022-09-04] MEDS: Propofol 10 mg/ml 100 ML BTL 100 ML IV SCH (08:06)
[2022-09-04] MEDS: Heparin 5000 UNITS/ML 1 mL VIAL SUBCUT SCH ×2 (08:10→20:40)
[2022-09-04] MEDS ORDERED: levETIRAcetam IV 1,500 MG in NS 0.9% 100 ml BAG 100 ML IVPB ONE (08:31)
[2022-09-04] MEDS ORDERED: levETIRAcetam 1000MG IVPREMIX 1,000 MG/100 ML BAG IVPB ONE (08:31)
[2022-09-04] MEDS: Sodium Bicarb 8.4% Vial 50 ML 150 MEQ in D5W 1000 ml BAG 850 ML IV SCH ×2 (09:07→16:54)
[2022-09-04 09:19] LABS: Venous Bicarbonate HCO3 22.6 mmol/L (24-28)
[2022-09-04] MEDS ORDERED: hydrALAZINE 20 mg/ml 1 ML Vial IV IV SLOW PU PRN (10:04)
[2022-09-04 13:15] LABS: Calcium 8.1 mg/dL (8.6-10.3); Potassium 4.7 mmol/L (3.5-5.0); eGFR CKD-EPI 28.8 (>60)
[2022-09-04] MEDS: Labetalol IV 5 MG/ML 20 ml VIAL IV PUSH PRN (16:06)
[2022-09-04 18:47] LABS: Calcium 7.8 mg/dL (8.6-10.3); Potassium 3.7 mmol/L (3.5-5.0); eGFR CKD-EPI 24.4 (>60)
[2022-09-04] MEDS ORDERED: Lactated Ringers 1000 ml BAG 1,000 ML IV ONE (19:07)
[2022-09-04 19:51] LABS: Urine Appearance Cloudy; Urine Bilirubin Negative (Negative); Urine Blood 3+ (Negative); Urine Color Yellow; Urine Glucose 1+(50 mg/dL) (Negative); Urine Ketones Negative (Negative); Urine Nitrite Negative (Negative); Urine Protein 1+(30 mg/dL) (Negative); Urine Urobilinogen Negative (Negative)
[2022-09-04 20:11] LABS: Urine Bacteria Absent (Absent); Urine Red Blood Cell 1+(3-5/hpf) (Absent); Urine Squamous Epithelial Cell Present (Absent); Urine White Blood Cell Trace(0-5/hpf) (Absent)
[2022-09-04] MEDS: Pantoprazole VIAL 40 MG VIAL IV SCH (20:39)
[2022-09-04] MEDS: levETIRAcetam IV 750 MG in NS 0.9% 100 ml BAG 100 ML IVPB SCH (20:51)
[2022-09-05] MEDS: Labetalol IV 5 MG/ML 20 ml VIAL IV PUSH PRN ×5 (00:20→18:01)
[2022-09-05] MEDS: Propofol 10 mg/ml 100 ML BTL 100 ML IV SCH (02:00)
[2022-09-05] MEDS: Chlorhexidine MOUTHWASH 0.12% 15 ML UDC SWISH SPIT SCH ×7 (02:06→22:06)
[2022-09-05 02:47] LABS: Calcium 7.8 mg/dL (8.6-10.3); Potassium 3.7 mmol/L (3.5-5.0); eGFR CKD-EPI 21.1 (>60)
[2022-09-05 05:31] LABS: ABS Lymphocytes 0.9 10^3/ul (1.0-4.8); ABS Monocytes 0.5 10^3/ul (0-0.8); ABS Neutrophils 7.3 10^3/ul (1.5-7.7); Eosinophil % 0.4 %; Hematocrit 43 % (42-52); Hemoglobin 13.9 g/dL (14.0-18.0); Lymphocyte % 10.3 %; Mean Corpuscular HGB Conc 33 g/dL (31-36); Mean Corpuscular Hemoglobin 25 pg (27-31); Mean Corpuscular Volume 77 fL (80-94); Mean Platelet Volume 8.2 fL (7.4-10.4); Platelet Count 152 10^3/uL (150-450); Red Blood Count 5.53 10^6 /uL (4.18-5.48); Red Cell Distribution Width 14 % (10-15); White Blood Count 8.7 10^3/uL (3.5-10.8)
[2022-09-05 06:33] LABS: Calcium 7.9 mg/dL (8.6-10.3); Magnesium 1.7 mg/dL (1.9-2.7); Potassium 3.9 mmol/L (3.5-5.0); eGFR CKD-EPI 19.8 (>60)
[2022-09-05] MEDS ORDERED: Lactated Ringers 1000 ml BAG 1,000 ML IV ONE (07:16)
[2022-09-05] MEDS ORDERED: Magnesium Sulfate 2 gm BAG 2 GM/50 ML BAG IVPB ONE (07:17)
[2022-09-05] MEDS ORDERED: Furosemide 40 mg/4 ml IV VIAL IV ONE (07:25)
[2022-09-05] MEDS: Heparin 5000 UNITS/ML 1 mL VIAL SUBCUT SCH ×2 (08:19→20:13)
[2022-09-05] MEDS: levETIRAcetam IV 750 MG in NS 0.9% 100 ml BAG 100 ML IVPB SCH ×2 (08:19→20:15)
[2022-09-05] MEDS: Lactated Ringers 1000 ml BAG 1,000 ML IV SCH ×2 (09:29→18:05)
[2022-09-05 12:11] LABS: Albumin 3.1 g/dL (3.2-5.2); Albumin/Globulin Ratio 1.6 (1-3); Globulin 1.9 g/dL (2-4); Magnesium 2.6 mg/dL (1.9-2.7); Potassium 4.2 mmol/L (3.5-5.0); Total Bilirubin 0.4 mg/dL (0.2-1.0); eGFR CKD-EPI 18.6 (>60)
[2022-09-05] MEDS ORDERED: Acetylcysteine INH SOL (RT) 200 MG/ML 4 ML VIAL INH ONE ×3 (14:33→14:53)
[2022-09-05] MEDS: Acetylcysteine ORAL SOL 200 mg/ml 30 ml VIAL PO SCH ×4 (14:45→15:00)
[2022-09-05] MEDS: Acetylcysteine INHALATION SOL 200 MG/ML NEB.SOLN 10 ML INH SCH ×2 (19:35→23:57)
[2022-09-05] MEDS: Pantoprazole VIAL 40 MG VIAL IV SCH (20:13)
[2022-09-06] MEDS ORDERED: Lorazepam PYXIS KEY PRN
[2022-09-06] MEDS ORDERED: LORazepam 2 mg VIAL 1 ml IV PUSH ONE
[2022-09-06] MEDS: Lactated Ringers 1000 ml BAG 1,000 ML IV SCH ×2 (00:50→07:39)
[2022-09-06] MEDS: Chlorhexidine MOUTHWASH 0.12% 15 ML UDC SWISH SPIT SCH ×6 (01:15→21:24)
[2022-09-06] MEDS: Labetalol IV 5 MG/ML 20 ml VIAL IV PUSH PRN ×3 (03:35→22:37)
[2022-09-06] MEDS: Albuterol/Ipratropium NEB.SOL (2.5/0.5 MG) 3 ML NEB.SOLN INH PRN ×6 (03:48→23:35)
[2022-09-06] MEDS: Acetylcysteine INHALATION SOL 200 MG/ML NEB.SOLN 10 ML INH SCH ×6 (03:49→23:36)
[2022-09-06 04:50] LABS: ABS Lymphocytes 0.6 10^3/ul (1.0-4.8); ABS Monocytes 0.4 10^3/ul (0-0.8); ABS Neutrophils 12.2 10^3/ul (1.5-7.7); Hematocrit 42 % (42-52); Hemoglobin 13.4 g/dL (14.0-18.0); Lymphocyte % 4.7 %; Mean Corpuscular HGB Conc 32 g/dL (31-36); Mean Corpuscular Hemoglobin 25 pg (27-31); Mean Corpuscular Volume 77 fL (80-94); Mean Platelet Volume 8.9 fL (7.4-10.4); Platelet Count 151 10^3/uL (150-450); Red Blood Count 5.43 10^6 /uL (4.18-5.48); Red Cell Distribution Width 14 % (10-15); White Blood Count 13.2 10^3/uL (3.5-10.8)
[2022-09-06 05:31] LABS: Albumin 2.9 g/dL (3.2-5.2); Albumin/Globulin Ratio 1.5 (1-3); Calcium 7.7 mg/dL (8.6-10.3); Globulin 1.9 g/dL (2-4); Magnesium 2.1 mg/dL (1.9-2.7); Phosphorus 4.9 mg/dL (2.5-5.0); Potassium 3.9 mmol/L (3.5-5.0); Total Bilirubin 0.5 mg/dL (0.2-1.0); Total Protein 4.8 g/dL (6.4-8.9)
[2022-09-06] MEDS: levETIRAcetam IV 750 MG in NS 0.9% 100 ml BAG 100 ML IVPB SCH ×2 (08:28→21:24)
[2022-09-06] MEDS: Heparin 5000 UNITS/ML 1 mL VIAL SUBCUT SCH ×2 (08:49→21:24)
[2022-09-06] MEDS: Prochlorperazine 5 mg/ml 2 ml VIAL (10 mg) IV PRN ×2 (10:36→14:47)
[2022-09-06] MEDS: Acetaminophen IV 1 GM/100ML 1,000 MG/100 ML BAG IV PRN (13:24)
[2022-09-06] MEDS: D5LR 1000 ml BAG 1,000 ML IV SCH ×2 (14:20→21:50)
[2022-09-06] MEDS ORDERED: Azithromycin 500 mg/250 ml NS 500 MG/250 ML BAG IVPB SCH (16:00)
[2022-09-06] MEDS: cefTRIAXone 1 gm/50 mL D5W 1 GM/50 ML BAG IV SCH (16:12)
[2022-09-06] MEDS: Pantoprazole VIAL 40 MG VIAL IV SCH (21:24)
[2022-09-07] MEDS: Acetylcysteine INHALATION SOL 200 MG/ML NEB.SOLN 10 ML INH SCH ×2 (03:21→07:54)
[2022-09-07] MEDS: Chlorhexidine MOUTHWASH 0.12% 15 ML UDC SWISH SPIT SCH ×6 (04:15→20:38)
[2022-09-07] MEDS: Prochlorperazine 5 mg/ml 2 ml VIAL (10 mg) IV PRN ×2 (04:15→09:51)
[2022-09-07] MEDS: D5LR 1000 ml BAG 1,000 ML IV SCH ×3 (05:34→20:39)
[2022-09-07 05:40] LABS: ABS Basophils 0.1 10^3/ul (0-0.2); ABS Eosinophils 0.1 10^3/ul (0-0.6); ABS Lymphocytes 0.4 10^3/ul (1.0-4.8); ABS Monocytes 0.5 10^3/ul (0-0.8); ABS Neutrophils 12.4 10^3/ul (1.5-7.7); Hematocrit 42 % (42-52); Hemoglobin 13.6 g/dL (14.0-18.0); Lymphocyte % 3.1 %; Mean Corpuscular HGB Conc 33 g/dL (31-36); Mean Corpuscular Hemoglobin 25 pg (27-31); Mean Corpuscular Volume 76 fL (80-94); Platelet Count 142 10^3/uL (150-450); Red Blood Count 5.46 10^6 /uL (4.18-5.48); Red Cell Distribution Width 15 % (10-15); White Blood Count 13.5 10^3/uL (3.5-10.8)
[2022-09-07 06:21] LABS: Albumin 2.6 g/dL (3.2-5.2); Albumin/Globulin Ratio 1.3 (1-3); Calcium 7.8 mg/dL (8.6-10.3); Direct Bilirubin 0.1 mg/dL (0.03-0.18); Indirect Bilirubin 0.5 mg/dL (0.3-1.0); Magnesium 2.2 mg/dL (1.9-2.7); Potassium 3.7 mmol/L (3.5-5.0); Total Bilirubin 0.6 mg/dL (0.2-1.0); Total Protein 4.6 g/dL (6.4-8.9); eGFR CKD-EPI 12.9 (>60)
[2022-09-07] MEDS: Labetalol IV 5 MG/ML 20 ml VIAL IV PUSH PRN ×2 (07:21→09:52)
[2022-09-07] MEDS: Albuterol/Ipratropium NEB.SOL (2.5/0.5 MG) 3 ML NEB.SOLN INH PRN (07:54)
[2022-09-07] MEDS: Heparin 5000 UNITS/ML 1 mL VIAL SUBCUT SCH ×2 (08:11→20:38)
[2022-09-07] MEDS: levETIRAcetam IV 750 MG in NS 0.9% 100 ml BAG 100 ML IVPB SCH ×2 (08:12→20:38)
[2022-09-07] MEDS: cefTRIAXone 1 gm/50 mL D5W 1 GM/50 ML BAG IV SCH (15:28)
[2022-09-07] MEDS: Acetaminophen IV 1 GM/100ML 1,000 MG/100 ML BAG IV PRN (15:31)
[2022-09-07] MEDS ORDERED: Piperacillin/Tazobac ADVAN 3.375 GM in NS 0.9% 100 ml BAG 100 ML IV ONE (16:32)
[2022-09-07] MEDS ORDERED: Zosyn per Pharmacy NOTE FOLLOW UP SCH (17:00)
[2022-09-07] MEDS: Pantoprazole VIAL 40 MG VIAL IV SCH (20:38)
[2022-09-07] MEDS: ZOSYN 3.375 GM Q12H per EXTENDED INFUSION IV SCH (20:39)
[2022-09-08] MEDS: Chlorhexidine MOUTHWASH 0.12% 15 ML UDC SWISH SPIT SCH ×6 (02:50→21:26)
[2022-09-08 02:52] LABS: Calcium 7.9 mg/dL (8.6-10.3); Magnesium 2.2 mg/dL (1.9-2.7); Phosphorus 5.4 mg/dL (2.5-5.0); Potassium 3.9 mmol/L (3.5-5.0); eGFR CKD-EPI 10.4 (>60)
[2022-09-08] MEDS: Acetaminophen IV 1 GM/100ML 1,000 MG/100 ML BAG IV PRN (05:12)
[2022-09-08] MEDS: D5LR 1000 ml BAG 1,000 ML IV SCH ×3 (05:22→21:33)
[2022-09-08 05:40] LABS: ABS Eosinophils 0.2 10^3/ul (0-0.6); ABS Lymphocytes 0.7 10^3/ul (1.0-4.8); ABS Neutrophils 12.2 10^3/ul (1.5-7.7); Eosinophil % 1.4 %; Hematocrit 39 % (42-52); Hemoglobin 12.6 g/dL (14.0-18.0); Lymphocyte % 4.8 %; Mean Corpuscular HGB Conc 32 g/dL (31-36); Mean Corpuscular Hemoglobin 25 pg (27-31); Mean Corpuscular Volume 76 fL (80-94); Mean Platelet Volume 7.6 fL (7.4-10.4); Platelet Count 143 10^3/uL (150-450); Red Blood Count 5.16 10^6 /uL (4.18-5.48); Red Cell Distribution Width 15 % (10-15)
[2022-09-08 06:28] LABS: Albumin 2.4 g/dL (3.2-5.2); Albumin/Globulin Ratio 1.2 (1-3); Calcium 7.8 mg/dL (8.6-10.3); Direct Bilirubin 0.1 mg/dL (0.03-0.18); Indirect Bilirubin 0.4 mg/dL (0.3-1.0); Magnesium 2.2 mg/dL (1.9-2.7); Potassium 3.9 mmol/L (3.5-5.0); Total Bilirubin 0.5 mg/dL (0.2-1.0); Total Protein 4.4 g/dL (6.4-8.9); eGFR CKD-EPI 10.3 (>60)
[2022-09-08] MEDS: levETIRAcetam IV 750 MG in NS 0.9% 100 ml BAG 100 ML IVPB SCH ×2 (09:22→20:39)
[2022-09-08] MEDS: ZOSYN 3.375 GM Q12H per EXTENDED INFUSION IV SCH ×2 (09:25→20:39)
[2022-09-08] MEDS: Heparin 5000 UNITS/ML 1 mL VIAL SUBCUT SCH ×2 (09:33→20:38)
[2022-09-08] MEDS: Labetalol IV 5 MG/ML 20 ml VIAL IV PUSH PRN ×2 (12:21→15:23)
[2022-09-08] MEDS: Pantoprazole VIAL 40 MG VIAL IV SCH (20:38)
[2022-09-09] MEDS: Chlorhexidine MOUTHWASH 0.12% 15 ML UDC SWISH SPIT SCH ×4 (01:11→15:18)
[2022-09-09] MEDS ORDERED: LORazepam 2 mg VIAL 1 ml IV PUSH PRN (02:17)
[2022-09-09] MEDS ORDERED: Lorazepam PYXIS KEY PRN (02:17)
[2022-09-09] MEDS ORDERED: LORazepam 2 mg VIAL 1 ml ONE (02:20)
[2022-09-09 03:56] LABS: ABS Eosinophils 0.4 10^3/ul (0-0.6); ABS Lymphocytes 0.7 10^3/ul (1.0-4.8); ABS Monocytes 1.2 10^3/ul (0-0.8); ABS Neutrophils 9.7 10^3/ul (1.5-7.7); Eosinophil % 3.2 %; Hematocrit 39 % (42-52); Hemoglobin 12.1 g/dL (14.0-18.0); Lymphocyte % 5.9 %; Mean Corpuscular HGB Conc 31 g/dL (31-36); Mean Corpuscular Hemoglobin 24 pg (27-31); Mean Corpuscular Volume 78 fL (80-94); Platelet Count 128 10^3/uL (150-450); Red Blood Count 4.96 10^6 /uL (4.18-5.48); Red Cell Distribution Width 16 % (10-15)
[2022-09-09 04:17] LABS: Albumin 2.3 g/dL (3.2-5.2); Albumin/Globulin Ratio 1.1 (1-3); Calcium 7.8 mg/dL (8.6-10.3); Globulin 2.1 g/dL (2-4); Magnesium 2.3 mg/dL (1.9-2.7); Phosphorus 7.7 mg/dL (2.5-5.0); Total Bilirubin 0.5 mg/dL (0.2-1.0); Total Protein 4.4 g/dL (6.4-8.9)
[2022-09-09] MEDS: D5LR 1000 ml BAG 1,000 ML IV SCH (06:10)
[2022-09-09] MEDS: Labetalol IV 5 MG/ML 20 ml VIAL IV PUSH PRN (07:51)
[2022-09-09] MEDS: Heparin 5000 UNITS/ML 1 mL VIAL SUBCUT SCH (07:53)
[2022-09-09] MEDS: D5W 1000 ml BAG 1,000 ML IV SCH ×2 (07:55→14:53)
[2022-09-09] MEDS: levETIRAcetam IV 750 MG in NS 0.9% 100 ml BAG 100 ML IVPB SCH (08:52)
[2022-09-09] MEDS: ZOSYN 3.375 GM Q12H per EXTENDED INFUSION IV SCH (08:52)
[2022-09-09 09:38] LABS: Urine Osmo 398 mOsm/kg (150-1150)
[2022-09-09] MEDS: Acetaminophen IV 1 GM/100ML 1,000 MG/100 ML BAG IV PRN (11:09)
[2022-09-09 11:11] LABS: Calcium 7.8 mg/dL (8.6-10.3); eGFR CKD-EPI 9.8 (>60)
[2022-09-09 11:13] LABS: Potassium 5.2 mmol/L (3.5-5.0)
[2022-09-09] MEDS ORDERED: Labetalol IV 5 MG/ML 20 ml VIAL IV PUSH PRN (12:12)
[2022-09-09] MEDS ORDERED: chlorproMAZINE 25 MG/ML 2 ML (50 MG) IV ONE (12:31)
[2022-09-09] MEDS ORDERED: chlorproMAZINE INJ 25 MG in NS 0.9% 50 ML 50 ML IV ONE (13:15)
[2022-09-09] MEDS ORDERED: chlorproMAZINE INJ 50 MG in NS 0.9% 50 ML IV ONE (13:15)
[2022-09-09 14:46] LABS: PCO2 Arterial 67 mmHg (35-45); PO2 Arterial 198 mmHg (80-100)
[2022-09-09 14:51] LABS: ABS Eosinophils 0.3 10^3/ul (0-0.6); ABS Lymphocytes 0.6 10^3/ul (1.0-4.8); ABS Neutrophils 7.3 10^3/ul (1.5-7.7); Eosinophil % 2.8 %; Hematocrit 35 % (42-52); Hemoglobin 10.8 g/dL (14.0-18.0); Lymphocyte % 6.8 %; Mean Corpuscular HGB Conc 31 g/dL (31-36); Mean Corpuscular Hemoglobin 24 pg (27-31); Mean Corpuscular Volume 78 fL (80-94); Mean Platelet Volume 8.1 fL (7.4-10.4); Platelet Count 101 10^3/uL (150-450); Red Blood Count 4.44 10^6 /uL (4.18-5.48); Red Cell Distribution Width 16 % (10-15); White Blood Count 9.3 10^3/uL (3.5-10.8)
[2022-09-09 15:01] LABS: Albumin 2.2 g/dL (3.2-5.2); Albumin/Globulin Ratio 1.2 (1-3); Calcium 7.4 mg/dL (8.6-10.3); Globulin 1.9 g/dL (2-4); Magnesium 2.2 mg/dL (1.9-2.7); Phosphorus 8.2 mg/dL (2.5-5.0); Total Bilirubin 0.4 mg/dL (0.2-1.0); Total Protein 4.1 g/dL (6.4-8.9)
[2022-09-09 15:03] LABS: Potassium 5.4 mmol/L (3.5-5.0)
[2022-09-09 16:04] LABS: Activated Partial Thrombo Time 33.3 seconds (26.0-38.0); INR 1.75 (0.89-1.11)
[2022-09-10] MEDS: Chlorhexidine MOUTHWASH 0.12% 15 ML UDC SWISH SPIT SCH ×5 (01:00→10:07)
[2022-09-10] MEDS: Heparin 5000 UNITS/ML 1 mL VIAL SUBCUT SCH ×2 (01:02→10:05)
[2022-09-10] MEDS: levETIRAcetam 500 MG/100 ML IV SCH ×2 (01:02→10:07)
[2022-09-10] MEDS: ZOSYN 3.375 GM Q12H per EXTENDED INFUSION IV SCH (01:09)
[2022-09-10] MEDS: Pantoprazole VIAL 40 MG VIAL IV SCH (01:09)
[2022-09-10] MEDS ORDERED: Norepinephrine 16MCG/ML IVPREMIX 4,000 MCG/250 ML D5W BAG IV SCH (03:30)
[2022-09-10] MEDS ORDERED: [UNRECOGNIZED DRUG - OTHER] IV SCH (04:00)
[2022-09-10] MEDS ORDERED: SODIUM ZIRCONIUM CYCLOSILICATE 10 GM PACKET PO ONE (04:00)
[2022-09-10 12:45] VITALS: BP 91/46
[2022-09-10] MEDS ORDERED: Morphine PCA ADULT 5 MG/ML 30 ML PCA SCH (13:00)
[2022-09-10] MEDS ORDERED: LORazepam 2 mg VIAL 1 ml IV PUSH ONE (13:00)
[2022-09-10] MEDS ORDERED: Morphine 10 MG/ML VIAL (1 ml) IV ONE (13:00)
[2022-09-10] MEDS ORDERED: Lorazepam PYXIS KEY ONE (13:24)
== END 2022-09-10 14:25 | disposition expired | DRG 130 ==
LOC: EDUNIT# → EDBD → ED 17:34 → EDHOLD 18:26 → SUATTDRO 18:26 → ICU 18:48 → UNDODISIN 09-09 14:45
PROVIDERS: ADMIT Surgery Surgical Critical Care; ATTEND Internal Medicine Critical Care Medicine